=== PATIENT | female | born 1960 | race Caucasian/White ===

== ENCOUNTER 2022-11-25 16:53 | Emergency (ER) | payer OTHER | END 2022-11-25 17:30 | LOC: NAV ERS 16:53 | DX: R25.1 Tremor, unspecified (principal); I11.0 Hypertensive heart disease with heart failure; I50.9 Heart failure, unspecified; I25.10 Atherosclerotic heart disease of native coronary artery without angina pectoris; K21.9 Gastro-esophageal reflux disease without esophagitis | CPT/HCPCS: 99284 ==